=== PATIENT | female | born 1975 | race Two or more races ===

== ENCOUNTER → 2024-07-12 07:24 | Outpatient (REF) | payer BC, SELFPAY | LOC: WDC 07:24 | PROVIDERS: ATTENDING PHYSICIAN Obstetrics & Gynecology Gynecology | DX: Z12.31 Encounter for screening mammogram for malignant neoplasm of breast (principal); Z01.419 Encounter for gynecological examination (general) (routine) without abnormal findings | CPT/HCPCS: 77063; 77067 ==

== ENCOUNTER → 2024-07-25 09:38 | Outpatient (REF) | payer BC, SELFPAY | LOC: WDC 09:38 | PROVIDERS: ATTENDING PHYSICIAN Obstetrics & Gynecology Gynecology | DX: R92.8 Other abnormal and inconclusive findings on diagnostic imaging of breast (principal) | CPT/HCPCS: 76642 ==

== ENCOUNTER 2024-11-05 22:28 | Emergency (ER) | payer BC, SELFPAY ==
[2024-11-05 22:33] VITALS: BP 112/78
[2024-11-05 23:41] LABS: % Basophils 0.4 % (0-2); % Immature Granulocytes 0.2 % (0-0.5); % Lymphocytes 13.7 % (20.5-51.1); % Monocytes 12.7 % (1.7-9.3); Absolute Lymphocytes 0.7 10^3/uL (1.2-3.4); Absolute Monocytes 0.6 10^3/uL (0.1-0.6); Absolute Neutrophils 3.6 10^3/uL (1.4-6.5); Hematocrit 37.2 % (37.0-47.0); Mean Corp Hgb Conc. 32.3 g/dL (33.0-37.0); Mean Corpuscular Hgb 27.3 pg (27.0-31.0); Mean Corpuscular Volume 84.7 fL (81.0-99.0); Mean Platelet Volume 9.6 fL (7.4-10.4); Nucleated Red Blood Cells % 0 %; Platelet Count 238 10^3/uL (130-400); Red Blood Cell Count 4.39 10^6/uL (4.20-5.40); Red Cell Dist. Width 12.8 % (11.5-14.5)
[2024-11-06] LABS: COVID-19 Antigen Negative (Negative)
[2024-11-06 00:05] LABS: ALT (SGPT) 27 U/L (0-35); AST (SGOT) 50 U/L (14-36); Albumin 4.4 g/dl (3.5-5.0); Alkaline Phosphatase 49 U/L (38-126); Blood Urea Nitrogen 16 mg/dl (7-17); Calcium 9.7 mg/dl (8.4-10.2); Carbon Dioxide 27 mmol/L (22-30); Chloride 102 mmol/L (98-107); Glucose 120 mg/dl (70-99); Potassium 4.3 mmol/L (3.5-5.1); Sodium 135 mmol/L (135-145); Total Bilirubin 0.7 mg/dl (0.2-1.3); Total Protein 7.5 g/dl (6.3-8.2); eGFR > 60.00
[2024-11-06] MEDS: NSS 1000 IV (01:09)
[2024-11-06] MEDS: BENADRYL 25 MG IV (01:10)
[2024-11-06] MEDS: REGLAN 10 MG IV (01:11)
[2024-11-06] MEDS: MOTRIN 600 MG PO (01:12)
[2024-11-06 01:13] VITALS: BP 119/71
--- NOTE | 2024-11-06 01:43 | ED.GENMED ---
History of Present Illness
General
Chief Complaint: Headache
Source: patient
Exam Limitations: none
Time Seen by Provider: 11/06/24 00:27
History of Present Illness
History of Present Illness:
49-year-old female does present with a headache. She states headache is been persistent since Sunday. She does have a history of migraines but really has not had one in quite some time. Patient missed her whole family is sick. She has had
bodyaches and chills. Also minor cough and congestion. Patient states her headache is frontal. She is a little nauseous but she certainly has photophobia. Saw her doctor yesterday given migraine medicine which really did not help much. She
initially was using ibuprofen and Tylenol which seemed to help in the beginning but since then she has just been in bed. Patient does report her father had an aneurysm rupture.
Past History
Past History
ED Past Medical History: Other (Migraines)
Social History
Tobacco: Non-smoker
Phy Exam
Physical Exam
Physical Exam:
CONSTITUTIONAL Patient alert and oriented to person, place and time. Well-appearing. Vital signs reviewed.
HEAD atraumatic, normocephalic.
EYES eyelids normal to inspection, Extraocular muscles intact, Conjunctiva normal, Sclera normal.
NECK normal range of motion, Trachea midline, no jugular venous distention. No meningismus
RESPIRATORY CHEST No respiratory distress noted, Chest expansion equal
BACK normal inspection, no obvious deformities
UPPER EXTREMITY range of motion normal, Motor strength normal, no cyanosis, no edema.
LOWER EXTREMITY range of motion normal, Motor strength normal, no cyanosis, no edema.
NEURO Speech normal, No focal motor deficits, [place] coma scale 15, Memory normal, Cranial Nerves intact to screening exam. No pronator drift
SKIN skin warm, dry, and normal in color.
Course
Orders/Labs/Results
Orders:
Orders
11/05/24 23:31
COVID-19 Antigen Urgent
Source: Nasal Swab
Complete Blood Count/With Diff Urgent
Comprehensive Metabolic Panel Urgent
Influenza A+B Rapid Molecular Urgent
NOLVIA Source: Nasal Swab
Specimen Description:
11/06/24 00:56
CT Head W/o Iv Contrast Urgent
Comment:
Reason For Exam: Sanchez, fam hx of SAH
0.9% Sodium Chloride 1000 ml [Nss] 1,000 ml IV BOLUS
Diphenhydramine [Benadryl] 25 mg IV NOW STA
Ibuprofen [Motrin] 600 mg PO NOW STA
Metoclopramide [Reglan] 10 mg IV NOW STA
Abnormal Lab Results
11/05/24
23:31
MCHC 32.3 L g/dL
(33.0-37.0)
Absolute Lymphs (auto) 0.7 L 10^3/uL
(1.2-3.4)
Lymphocytes % 13.7 L %
(20.5-51.1)
Monocytes % 12.7 H %
(1.7-9.3)
Glucose 120 H mg/dl
(70-99)
AST 50 H U/L
(14-36)
11/05/24 23:31
11/05/24 23:31
Vital Signs
Initial and Last Documented VS:
Initial Vital Signs
Temp Pulse Resp BP Pulse Ox
99.6 F 84 16 112/78 100
11/05/24 22:33 11/05/24 22:33 11/05/24 22:33 11/05/24 22:33 11/05/24 22:33
Last Documented Vital Signs
Temp Pulse Resp BP Pulse Ox
100.2 F 86 22 119/71 99
11/06/24 00:49 11/06/24 01:13 11/06/24 01:13 11/06/24 01:13 11/06/24 01:13
MDM/Problems Addressed
Differential Diagnosis Includes:
Influenza, meningitis, migraine, tension headache, cluster headache, electrolyte imbalance, dehydration
MDM/Problems Addressed:
Migraine headache, influenza
*Radiology
Radiology exam reviewed: preliminary read by ED provider (No hemorrhage noted) and radiology read reviewed
*Pulse Oximetry
Patient hypoxic: no
*Critical Care Note
Total Time (30-74mins, 75-104mins- exclusive of procedures): Not Applicable
Data Reviewed
Source: patient
Prescriptions/Medications Considered But Not Given:
Consider antibiotics but influenza positive
Patient Management
Escalation/DeEscalation of care consider admission/obs:
Feeling much better. CT negative. Okay for outpatient follow-up. Likely influenza triggered migraine. Recommended outpatient follow-up. no role for tamiflu as pt is several days into her symptoms.
ED Attending Note
-
Portions of this chart may have been created with voice recognition software.� Occasional wrong word or��sound alike� substitutions may have occurred due to the inherent limitations of voice recognition software.
Discharge Plan
Departure
Patient Disposition: Home (Routine Discharge)
Date of Disposition: 11/06/24
Time of Disposition: 02:51
Patient with high blood pressure during this ER visit?: No
Discharge Problem:
Headache, Influenza
Instructions: Flu, Headache, Adult (DC)
Referrals:
UNKNOWN - PT DOES,NOT KNOW [Family Provider] -
Activity Restrictions/Additional Instructions:
Please use Tylenol and ibuprofen for fever control. Please drink plenty of fluids. Return immediately for change in mental status, intractable vomiting, worsening symptoms or any other concerns.
Interventions
Interventions:
*Risk Screen - Suicide Last Done: 11/05/24 22:33
*General Assessment Last Done: 11/06/24 01:14
*Neglect/Abuse Screening Last Done: 11/05/24 22:33
*ED COVID-19 Vaccine History Last Done: 11/06/24 01:14
ED- Neurological Assessment Last Done: 11/06/24 01:15
Discharge Date and Time
Print Language: POLISH
[2024-11-06] MEDS: TORADOL 30 MG IV (02:58)
== END 2024-11-06 03:41 | disposition home or self-care (01) ==
LOC: EMR 22:28
PROVIDERS: EMERGENCY PHYSICIAN Emergency Medicine
DX: G43.909 Migraine, unspecified, not intractable, without status migrainosus (principal); J10.1 Influenza due to other identified influenza virus with other respiratory manifestations
CPT/HCPCS: 96374; 96375; 96361; 99284; 70450; 80053; 85025; 87502; 87811

== ENCOUNTER 2024-11-07 10:57 | Emergency (ER) | payer BC, SELFPAY ==
[2024-11-07 11:05] VITALS: BP 98/63
--- NOTE | 2024-11-07 11:58 | ED.GENMED ---
History of Present Illness
General
Chief Complaint: Headache
Source: patient and spouse
Time Seen by Provider: 11/07/24 11:36
Nursing documentation reviewed up to this point in time: agreed with
Travel History
Have you traveled to any high risk areas for coronavirus over the past 14 days?: No
Do you have any symptoms of coronavirus? Fever > 100 degrees, chills, cough, shortness of breath, sore throat, loss of taste or smell, muscle aches, or headache?: No
History of Present Illness
History of Present Illness:
49-year-old female with remote PMH of migraines, who presented to the emergency department with right temporal headache that sometimes radiates to the suprasternal region. Headache started 4 days ago and has worsened. Patient was seen in the ED 2
days ago for similar symptoms. At that time, patient was evaluated with noncontrast CT scan of head which was negative for any acute intracranial process. Patient reports discharged on Tylenol and ibuprofen follow-up with PCP. She has been taking
50 mg sumatriptan up to 200 mg daily for 2 days, 1000 mg acetaminophen every 8 hours interchangeably with Motrin. However, patient reports that her symptoms acutely improving and they are worsened over the past 24 hours prompting her return to the
ED. She denies chest pain, fever, chills, abdominal pain, urinary symptoms.
Past History
Past History
ED Past Medical History: Other (Migraines)
Social History
Tobacco: Non-smoker
Alcohol: Occasional
Drug: None
Personal:
Living: with family
Review of Systems
Review of Systems
All Other Systems: ROS reviewed and negative except as documented in HPI and ROS
Phy Exam
Physical Exam
Physical Exam:
GENERAL: Alert and oriented x 3, NAD. Afebrile
HEAD: Tenderness on right temporal region
OROPHARYNX: no exudate or ulcers.
EYE: pupils equal and reactive extraocular muscles
NECK: Supple, no significant adenopathy.
CARDIAC: Regular rate and rhythm without any obvious murmurs.
LUNGS: Normal breath sounds,normal-no rhonchi. Not bronchospastic.
ABDOMEN: Soft, NT, ND, no peritoneal signs.
NEUROLOGICAL: Alert and oriented x 3. No focal neurological deficit.
SKIN: Warm and dry, no rash or lesion, no discoloration, skin intact.
MUSCULOSKELETAL: Full range of motion of extremities.
LYMPHATIC:No lymph nodes on his neck or supraclavicular area.
PSYCH: Normal and appropriate interaction.
Neurological Exam
Neurological Exam: alert, oriented x3, normal reflexs and speech normal
Musculoskeletal Exam
Musculoskeletal Exam: full ROM
Course
Orders/Labs/Results
Orders:
Orders
11/07/24 12:03
Sumatriptan Succinate [Imitrex] 6 mg SC NOW STA
11/07/24 12:07
Basic Metabolic Panel Urgent
CRP [C-Reactive Protein] Urgent
Complete Blood Count/With Diff Urgent
ESR [Erythrocyte Sed Rate] Urgent
11/07/24 12:34
0.9% Sodium Chloride 1000 ml [Nss] 1,000 ml IV BOLUS
Diphenhydramine [Benadryl] 25 mg IV NOW STA
Ketorolac [Toradol] 30 mg IV NOW STA
Metoclopramide [Reglan] 10 mg IV NOW STA
11/07/24 12:35
Dexamethasone Sod Phosphate [Decadron] 10 mg IV NOW STA
Abnormal Lab Results
11/07/24
12:07
RBC 4.13 L 10^6/uL
(4.20-5.40)
Hgb 11.4 L g/dL
(12.0-16.0)
Hct 35.2 L %
(37.0-47.0)
MCHC 32.4 L g/dL
(33.0-37.0)
Abs Immat Gran (auto) 0.1 H 10^3/uL
(0-0.05)
Absolute Neuts (auto) 9.0 H 10^3/uL
(1.4-6.5)
Absolute Lymphs (auto) 0.7 L 10^3/uL
(1.2-3.4)
Immature Gran % 0.7 H %
(0-0.5)
Neutrophils % 86.8 H %
(42.2-75.2)
Lymphocytes % 7.1 L %
(20.5-51.1)
ESR 25 H mm/hour
(0-20)
Creatinine 1.1 H mg/dL
(0.6-1.0)
Glucose 109 H mg/dl
(70-99)
C-Reactive Protein 63.40 H mg/L
(0.0-10.00)
11/07/24 12:07
11/07/24 12:07
Vital Signs
Initial and Last Documented VS:
Initial Vital Signs
Temp Pulse Resp BP Pulse Ox
99.6 F 99 16 98/63 96
11/07/24 11:05 11/07/24 11:05 11/07/24 11:05 11/07/24 11:05 11/07/24 11:05
Last Documented Vital Signs
Temp Pulse Resp BP Pulse Ox
99.6 F 77 16 114/76 99
11/07/24 11:05 11/07/24 14:00 11/07/24 14:00 11/07/24 14:00 11/07/24 14:00
MDM/Problems Addressed
MDM/Problems Addressed:
49-year-old female with past medical history of migraine who presented to the emergency department with right-sided headache that started 4 days ago. Suspects status migrainosus vs analgesic rebound headache given multiple analgesic in the past 72
hours. Patient likely did not respond to sumatriptan given inadequate dosing at 50 mg (after dose 100 mg with max 200 mg daily). Acute hemorrhagic stroke is highly unlikely given recent negative noncontrast head CT. CBC, BMP, CRP, ESR pending.
Will give ketorolac, Reglan, diphenhydramine and Decadron and monitor patient.
*Critical Care Note
Total Time (30-74mins, 75-104mins- exclusive of procedures): Not Applicable
Update Note
Update Note:
Patient reports feeling better. She remains hemodynamically stable and is medically stable for discharge. 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
likely as a candidate for further triptan therapy. Discussed with Dr. Silveira. Recommend treatment with rimegepant 75 mg daily as needed. Will also recommend following up with neurologist outpatient. Patient will most likely benefit from prophylaxis
therapy with amitriptyline vs propranolol given her soft blood pressure in the ED today.
ED Attending Note
-
Portions of this chart may have been created with voice recognition software.� Occasional wrong word or��sound alike� substitutions may have occurred due to the inherent limitations of voice recognition software.
Discharge Plan
Departure
Patient Disposition: Home (Routine Discharge)
Date of Disposition: 11/07/24
Time of Disposition: 15:12
Patient with high blood pressure during this ER visit?: No
Condition: Fair
Covid-19: Not Applicable
Discharge Problem:
Influenza A, Headache, migraine, with status migrainosus
Instructions: Migraines (DC), Headache, Adult (DC)
Prescriptions:
New
Nurtec ODT 75 mg tablet,disintegrating
75 mg PO ONCE PRN (Reason: migraine headache) Qty: 15 0RF
Referrals:
[facility] [Outside] - Follow up in 5-7 days
Piter Silveira MD [Active] - Follow up in 1 week
NONE,* [Family Provider] -
Activity Restrictions/Additional Instructions:
It was a pleasure meeting you and taking part in your care. We hope for your continued healing and wellness.
You presented to the emergency department today with recurrent right-sided headache. Your recent CT scan was negative for any acute hemorrhage your labs today was significant for increased ESR and CRP indicating inflammation with normal white
count. You been evaluated and treated with IV fluid, Toradol, Reglan, IV steroid and feeling better. We have sent some migraine medications to preferred pharmacy and recommend that you follow-up with your PCP and with neurology outpatient. We
have also provided you with referrals in the discharge packet.
Please schedule a follow up appointment as directed. Call to schedule an appointment.
Please take your medications as prescribed and follow up with your primary care provider and/or other healthcare provider involved in your care for any further adjustments to your medication regimen as necessary.
Please return to the emergency department with ANY change in, persisting, or worsening of symptoms. If any of your symptoms do not improve, or persist, or become more severe within 6-12 hours, please return to the emergency department for further
care. You may also return to the emergency department if you develop a headache, neck pain/stiffness, fever greater than 100.4F, chest pain, shortness of breath, persistent nausea, vomiting, slurred speech, difficulty walking, numbness/tingling,
weakness, signs of infection or any other symptoms that are worrisome to you.
If you have any questions or concerns please do not hesitate to call the Hospital at .
Interventions
Interventions:
*Risk Screen - Suicide Last Done: 11/07/24 12:02
*General Assessment Last Done: 11/07/24 12:02
*Neglect/Abuse Screening Last Done: 11/07/24 12:02
ED- Fall Risk Assessment Last Done: 11/07/24 12:02
ED- Neurological Assessment Last Done: 11/07/24 12:02
Discharge Date and Time
Print Language: FRENCH
[2024-11-07 12:00] VITALS: BP 102/68
[2024-11-07 12:34] LABS: Hematocrit 35.2 % (37.0-47.0); Hemoglobin 11.4 g/dL (12.0-16.0); Mean Corp Hgb Conc. 32.4 g/dL (33.0-37.0); Mean Corpuscular Hgb 27.6 pg (27.0-31.0); Mean Corpuscular Volume 85.2 fL (81.0-99.0); Mean Platelet Volume 9.5 fL (7.4-10.4); Platelet Count 203 10^3/uL (130-400); Red Blood Cell Count 4.13 10^6/uL (4.20-5.40); Red Cell Dist. Width 12.8 % (11.5-14.5); White Blood Cell Count 10.3 10^3/uL (4.8-10.8)
[2024-11-07 12:37] LABS: Erythrocyte Sed Rate 25 mm/hour (0-20)
[2024-11-07] MEDS: BENADRYL 25 MG IV (12:41)
[2024-11-07] MEDS: REGLAN 10 MG IV (12:41)
[2024-11-07 12:42] LABS: Blood Urea Nitrogen 10 mg/dl (7-17); Calcium 8.5 mg/dl (8.4-10.2); Carbon Dioxide 25 mmol/L (22-30); Chloride 104 mmol/L (98-107); Glucose 109 mg/dl (70-99); Potassium 3.5 mmol/L (3.5-5.1); Sodium 137 mmol/L (135-145); eGFR > 60.00
[2024-11-07] MEDS: TORADOL 30 MG IV (12:42)
[2024-11-07] MEDS: NSS 1000 IV (12:42)
[2024-11-07] MEDS: DECADRON 10 MG IV (12:42)
[2024-11-07 13:19] LABS: % Basophils 0.2 % (0-2); % Immature Granulocytes 0.7 % (0-0.5); % Lymphocytes 7.1 % (20.5-51.1); % Monocytes 5.2 % (1.7-9.3); % Neutrophils 86.8 % (42.2-75.2); Absolute Immature Granulocytes 0.1 10^3/uL (0-0.05); Absolute Lymphocytes 0.7 10^3/uL (1.2-3.4); Absolute Monocytes 0.5 10^3/uL (0.1-0.6); Nucleated Red Blood Cells % 0 %
[2024-11-07 13:39] VITALS: BP 106/64
[2024-11-07 14:00] VITALS: BP 114/76
== END 2024-11-07 16:00 | disposition home or self-care (01) ==
LOC: EMR 10:57
PROVIDERS: Student in an Organized Health Care Education/Training Program; EMERGENCY PHYSICIAN Emergency Medicine
DX: J10.1 Influenza due to other identified influenza virus with other respiratory manifestations (principal); G43.901 Migraine, unspecified, not intractable, with status migrainosus
CPT/HCPCS: 99284; 96374; 96375 ×3; 96361; 96372; 80048; 85025; 85652; 86140

== ENCOUNTER 2024-11-09 12:18 | Inpatient (IN) | payer BC, SELFPAY ==
[2024-11-09] VITALS (13 sets, daily range): BP systolic 86–135; BP diastolic 58–78; BMI 25.0
--- NOTE | 2024-11-09 09:11 | ED.GENMED ---
History of Present Illness
General
Chief Complaint: Headache
Source: patient and spouse
Exam Limitations: none
Time Seen by Provider: 11/09/24 09:04
Nursing documentation reviewed up to this point in time: agreed with
History of Present Illness
History of Present Illness:
49 yo female dx w Flu on 11/04, here on 11/06 for H/A and head CT neg, hx migraines. Here again on 11/07 for H/A, Neurology recommended Amitriptyline and out pt f/u. Pt states her headache is gone. She is here today for worse cough and R ear pressure
worsening any time she coughs. Denies n/v/d. Poor appetite.
Past History
Past History
ED Past Medical History: Other (Migraines)
ED Past Surgical History:
Social History
Tobacco: Non-smoker
Alcohol: Occasional
Drug: None
Personal:
Living: with family
Review of Systems
Review of Systems
Allergies reviewed?: Yes
All Other Systems: ROS reviewed and negative except as documented in HPI and ROS
Constitutional: Reports fatigue and chills
EENT: Reports other (R ear pressure); Denies sore throat
Respiratory: Reports cough; Denies trouble breathing
Cardiac: Denies chest pain
ABD/GI: Reports anorexia; Denies abdominal pain, nausea, vomiting, diarrhea or constipated
: Denies dysuria or difficulty voiding
Musculoskeletal: Reports no symptoms
Skin: Reports no symptoms
Neurological: Reports no symptoms
Phy Exam
Physical Exam
Physical Exam:
GENERAL: No acute distress. A&Ox3.
CONSTITUTIONAL: Afebrile.
EYES: clear, conjunctivae normal
ENMT: moist mucus membranes, Pharynx nl. Left TM normal, R TM mildly erythematous
RESPIRATORY: Regular respirations, nonlabored, lungs clear.
CARDIOVASCULAR: Regular rate and rhythm, no murmurs, no rubs.
GI: Soft, nontender, normal BS
MUSCULOSKELETAL: Moves with ease. Well perfused.
SKIN: Warm, dry, pink
PSYCH: Depressed, anxious mood and affect. Well kept.
NEUROLOGIC: Awake, alert and oriented. No focal neurological deficits
Course
Orders/Labs/Results
Orders:
Orders
11/09/24 09:10
CR Chest - 2 Views Urgent
Comment:
Reason For Exam: SOB, cough, recent Flu dx
11/09/24 10:01
0.9% Sodium Chloride 1000 ml [Nss] 1,000 ml IV BOLUS
CefTRIAXone [Rocephin] 1,000 mg IV NOW STA
11/09/24 10:02
Doxycycline [Vibramycin] 100 mg PO NOW STA
11/09/24 10:06
O2 Therapy [RESP] Urgent
Nasal Cannula Liter Flow: 2 LPM
Titrate/Wean O2 to maintain O2 sat greater than (%): 95
11/09/24 10:22
Acetaminophen [Tylenol] 1,000 mg PO NOW STA
11/09/24 10:31
Complete Blood Count/With Diff Urgent
Comprehensive Metabolic Panel Urgent
Lactic Acid Q4H
Comment: CANCEL 2nd LACTIC ACID IF 1st LACTIC ACID IS LESS THAN 2
Blood Culture Q30M
NOLVIA Source: Blood/Venous
Specimen Description:
11/09/24 10:32
Blood Culture Q30M
NOLVIA Source: Blood/Venous
Specimen Description:
11/09/24 11:21
Admit/Transfer Patient As Directed
Co-Sign Provider:
Level of Care: Inpatient admission
Assign to:: Medical/Surgical
Physician / Group: Jhoan Evans
Diagnosis: Flu A infection, superimposed bacterial PNA
Reason for Hospitalization: Flu A infection, superimposed bacterial PNA
Expected length of stay greater than two midnights?: Yes
ELOS- Estimated Length of Stay in days: 3
I certify the patient meets the requirements for IP care: Yes
PRN Pain Medication Management As Directed
May give lesser potent ordered pain med per pt: Yes
preference::
Protocol:: Medication orders for pain may be administered in a
manner that supports deferring to patient preference
when the pt is:
- Requesting an ordered lesser potent pain medication.
Least to most potent pain medications are defined
as: acetaminophen < NSAID < tramadol < opioids
(morphine, oxycodone, hydromorphone).
- Requesting a lesser dose of the same medication IF
ORDERED.
- Requesting a less intrusive route of administration
if both routes are prescribed by the provider (PO <
IV).
11/09/24 11:22
Code Status As Directed
Resuscitation Status: Full Code
Abnormal Lab Results
11/09/24
10:31
RBC 3.89 L 10^6/uL
(4.20-5.40)
Hgb 10.5 L g/dL
(12.0-16.0)
Hct 32.7 L %
(37.0-47.0)
MCHC 32.1 L g/dL
(33.0-37.0)
Absolute Neuts (auto) 7.2 H 10^3/uL
(1.4-6.5)
Absolute Lymphs (auto) 0.9 L 10^3/uL
(1.2-3.4)
Neutrophils % 84.2 H %
(42.2-75.2)
Lymphocytes % 10.7 L %
(20.5-51.1)
Glucose 113 H mg/dl
(70-99)
11/09/24 10:31
11/09/24 10:31
Vital Signs
Initial and Last Documented VS:
Initial Vital Signs
Temp Pulse Resp BP Pulse Ox
98.9 F 100 20 135/77 93
11/09/24 08:29 11/09/24 08:29 11/09/24 08:29 11/09/24 08:29 11/09/24 08:29
Last Documented Vital Signs
Temp Pulse Resp BP Pulse Ox
101.4 F H 89 18 114/74 99
11/09/24 15:25 11/09/24 16:00 11/09/24 16:00 11/09/24 16:00 11/09/24 16:00
MDM/Problems Addressed
Differential Diagnosis Includes:
PNA
MDM/Problems Addressed:
49 yo female dx w Flu on 11/04, here on 11/06 for H/A and head CT neg, hx migraines. Here again on 11/07 for H/A, Neurology recommended Amitriptyline and out pt f/u. Pt states her headache is gone. She is here today for worse cough and R ear pressure
worsening any time she coughs. Denies n/v/d. Poor appetite.
Afebrile
intermittent cough, reddened R TM
10:00 a.m.
Pt CXR: moderate right middle lung field PNA
Pulse ox 90% RA, 3rd visit in one week, plan: admit, IVFs, PNA, R otitis media
Hospitalist notified of admission
*Critical Care Note
Total Time (30-74mins, 75-104mins- exclusive of procedures): Not Applicable
ED Attending Note
-
Portions of this chart may have been created with voice recognition software.� Occasional wrong word or��sound alike� substitutions may have occurred due to the inherent limitations of voice recognition software.
Discharge Plan
Departure
Patient Disposition: Admit
Date of Disposition: 11/09/24
Time of Disposition: 10:06
Admit to: Med/Surg
Presentation/result/management discussed w/ accepting MD/DO: Hospitalist
Condition: Fair
Discharge Problem:
Acute otitis media, right, RML pneumonia
Interventions
Interventions:
*General Assessment Last Done: 11/09/24 09:14
*Neglect/Abuse Screening Last Done: 11/09/24 09:14
ED- Fall Risk Assessment Last Done: 11/09/24 09:15
*ED COVID-19 Vaccine History Last Done: 11/09/24 09:14
ED- Neurological Assessment Last Done: 11/09/24 10:00
ED- Pulmonary Assessment Last Done: 11/09/24 10:00
[2024-11-09] MEDS: NSS 1000 IV ×2 (10:32→20:12)
[2024-11-09] MEDS: VIBRAMYCIN 100 MG PO ×2 (10:39→20:11)
[2024-11-09] MEDS: ROCEPHIN 1000 MG IV (10:39)
[2024-11-09] MEDS: TYLENOL 1000 MG PO (10:58)
[2024-11-09 11:14] LABS: Lactic Acid 1.4 mmol/L (0.7-2.0)
[2024-11-09 11:15] LABS: Hematocrit 32.7 % (37.0-47.0); Hemoglobin 10.5 g/dL (12.0-16.0); Mean Corp Hgb Conc. 32.1 g/dL (33.0-37.0); Mean Corpuscular Volume 84.1 fL (81.0-99.0); Mean Platelet Volume 9.8 fL (7.4-10.4); Platelet Count 232 10^3/uL (130-400); Red Blood Cell Count 3.89 10^6/uL (4.20-5.40); Red Cell Dist. Width 12.7 % (11.5-14.5); White Blood Cell Count 8.6 10^3/uL (4.8-10.8)
[2024-11-09 11:16] LABS: ALT (SGPT) 24 U/L (0-35); AST (SGOT) 31 U/L (14-36); Albumin 3.5 g/dl (3.5-5.0); Alkaline Phosphatase 60 U/L (38-126); Blood Urea Nitrogen 15 mg/dl (7-17); Calcium 8.5 mg/dl (8.4-10.2); Carbon Dioxide 26 mmol/L (22-30); Chloride 103 mmol/L (98-107); Glucose 113 mg/dl (70-99); Potassium 4.3 mmol/L (3.5-5.1); Sodium 136 mmol/L (135-145); Total Bilirubin 0.6 mg/dl (0.2-1.3); Total Protein 6.4 g/dl (6.3-8.2); eGFR > 60.00
--- NOTE | 2024-11-09 11:24 | HPS.HSE ---
Family Physician
-
Family Physician: * NONE
Chief Complaint
-
Worsening cough/shortness of breath fever
History of Present Illness
Patient is a 49-year-old female with no major past medical history except possible asthma started to having new onset of upper respiratory tract symptoms of cough/congestion from Sunday. Patient was having on and off fever and came to ER and found
to have flu a positive. Patient was having associated headache and was provided symptomatic care. Patient was discharged home and due to nonimprovement of headache came back to ER again. Patient was provided cocktail of medication and neurology
recommended patient to be given amitriptyline with which patient headache resolved. Unfortunately patient started having worsening cough with phlegm production and new shortness of breath. Patient feeling excessively fatigued/lethargic and came
to ER for further evaluation.
During my ER visit patient able to provide history has decreased voice and overall seems quite debilitated from ongoing illness. Denies of having associated chest pain/dizziness/palpitations/abdominal pain/nausea/vomiting/diarrhea/dysuria.
Medical History
Past Medical History
Past Medical History: Reports Asthma
Past Surgical History: Reports None and Other
Social History
Tobacco: Non-smoker
Alcohol: Occasional
Personal:
Living: With Family
Family History
Family History: Not pertinent
Allergies / Home Medications
Allergies reflects when Allergies were last updated in [facility].
Home Medications with original date entered in [facility]
Allergy/Medication List:
Allergies
Allergy/AdvReac Type Severity Reaction Status Date / Time
No Known Allergies Allergy Verified 11/09/24 08:32
Home Medications
rimegepant 75 mg disintegrating tablet (Nurtec ODT) 75 mg PO ONCE PRN migraine headache #15 tabs 11/07/24
amitriptyline 10 mg tablet 10 mg PO DAILY 11/09/24
Review of Systems
-
A 12 point ROS was completed and negative except as noted: Yes
Physical Exam
Vital Signs
Vital Signs
Temp Pulse Resp BP Pulse Ox
103.1 F H 108 13 124/70 91
11/09/24 10:56 11/09/24 10:22 11/09/24 10:22 11/09/24 10:22 11/09/24 10:22
Physical Exam
General: No Apparent Distress
HEENT: Moist mucous membranes, Atraumatic and Oxygen (2L NC)
Respiratory: Wheezes and Rhonchi
Cardiac: S1/S2, Regular Rhythm and Tachycardia; No Murmur or Rub
GI: Soft, Non Distended and Normal Bowel Sounds; No Organomegaly
Musculoskeletal: No Clubbing, No Cyanosis and No Edema
Skin: No Rash
Neuro: Awake, Alert, Oriented and Nonfocal/grossly intact
Laboratory Results
-
11/09/24 10:31
11/09/24 10:31
Laboratory Results
Lactic Acid 1.4 mmol/L (0.7-2.0) 11/09/24 10:31
Total Bilirubin 0.6 mg/dl (0.2-1.3) 11/09/24 10:31
AST 31 U/L (14-36) 11/09/24 10:31
ALT 24 U/L (0-35) 11/09/24 10:31
Alkaline Phosphatase 60 U/L (38-126) 11/09/24 10:31
Data Reviewed
-
Diagnostic Radiology: Image Personally Visualized and interpreted, Discussed with Patient and Discussed with Family
Lab Data: Labs Reviewed by me, Discussed with Patient and Discussed with Family
Impression/Plan
-
1. Sepsis -POA
Right lower lobe pneumonia
-Patient recovering from flu infection, flu symptoms started last Sunday and out of window for Tamiflu
-Febrile/tachycardic/hypoxic in ER
-Chest x-ray showing new right lower lobe infiltrates
-Patient got Rocephin/doxycycline, continue
2. Acute hypoxic respite insufficiency
-Secondary to flu/pneumonia, wean off as possible
-History of asthma although no signs of flareup on exam
3. Recovering Flu A infection
-Initial symptom onset on 11/03
-Out of Tamiflu treatment window
4. H/o Asthma
-No history of flareup
-Have not required to follow-up with pulmonology recently
-As needed nebulizer therapy ordered
5. Migraine Episode
-Likely related with flu
-Continue amitriptyline which has helped patient
6. Chronic normocytic anemia
-monitor
7. Right ear pain
-Otoscopic examination showing some erythema on tympanic membrane
-likely viral otitis media
DVT PPX- lovenox
Full code
Total time spent : 79 mins
I personally saw and examined the patient.
I have reviewed all diagnostic interpretations and treatment plans as written.
Time includes patient management by me, time spent at the patients bedside, time to review lab and imaging results, discussing patient care, documentation in the medical record, and time spent with the family or caregiver and discussing care plan
with RN/Consultants.
[2024-11-09 11:47] LABS: % Basophils 0.1 % (0-2); % Immature Granulocytes 0.4 % (0-0.5); % Lymphocytes 10.7 % (20.5-51.1); % Monocytes 4.6 % (1.7-9.3); % Neutrophils 84.2 % (42.2-75.2); Absolute Lymphocytes 0.9 10^3/uL (1.2-3.4); Absolute Monocytes 0.4 10^3/uL (0.1-0.6); Absolute Neutrophils 7.2 10^3/uL (1.4-6.5); Nucleated Red Blood Cells % 0 %
--- NOTE | 2024-11-09 19:00 | PTCARENOTE ---
Pt arrived from ED via stretcher, oob to room with steady gait. Pt c/o headache, and nausea. Pt states 'it feels like my migraine is coming back. I have no been able to hold any pills down. I threw them up.' Oriented to room. vss. medicated as
ordered. call gonzalez within reach.
[2024-11-09] MEDS: LOVENOX 40 MG SC (20:14)
[2024-11-09] MEDS: TYLENOL 650 MG PO (20:14)
[2024-11-10 07:24] LABS: Hematocrit 28.4 % (37.0-47.0); Hemoglobin 9.2 g/dL (12.0-16.0); Mean Corp Hgb Conc. 32.4 g/dL (33.0-37.0); Mean Corpuscular Hgb 27.3 pg (27.0-31.0); Mean Corpuscular Volume 84.3 fL (81.0-99.0); Mean Platelet Volume 9.9 fL (7.4-10.4); Platelet Count 219 10^3/uL (130-400); Red Blood Cell Count 3.37 10^6/uL (4.20-5.40); Red Cell Dist. Width 12.8 % (11.5-14.5); White Blood Cell Count 8.8 10^3/uL (4.8-10.8)
[2024-11-10 07:47] LABS: Blood Urea Nitrogen 12 mg/dl (7-17); Calcium 7.8 mg/dl (8.4-10.2); Carbon Dioxide 25 mmol/L (22-30); Chloride 105 mmol/L (98-107); Estimated Creatinine Clearance 72 ml/min; Glucose 95 mg/dl (70-99); Sodium 135 mmol/L (135-145); eGFR > 60.00
[2024-11-10 08:08] VITALS: BP 117/68
[2024-11-10] MEDS: VIBRAMYCIN 100 MG PO ×2 (09:44→20:40)
[2024-11-10] MEDS: ELAVIL 10 MG PO (09:45)
[2024-11-10] MEDS: ROCEPHIN 1000 MG IV (09:46)
[2024-11-10] MEDS: STERILE WATER FOR INJECTION 10 ML IV (09:46)
[2024-11-10] MEDS: TYLENOL 650 MG PO ×2 (09:55→20:44)
--- NOTE | 2024-11-10 14:42 | W.PN.HOSP.TC ---
Today's Communication/Plan
-
Assessment / Plan
Assessment / Plan
NAD
Scleral Anicteric
MMM
No JVD
Rhonchorous
RRR, S1/S2
Soft, NT, ND, BS+
Warm, Dry
Calm
Sepsis likely secondary to right lower lobe pneumonia
Right lower lobe pneumonia
2/5 diagnosed with flu however was outside of window for Tamiflu
Now presented back with findings right lower lobe pneumonia started on Rocephin doxycycline which have been continued
Acute hypoxemic respiratory failure secondary to pneumonia/flu wean O2 as tolerated
Continue incentive spirometer Acapella use if not ordered will order
Recovering flu out of Tamiflu treatment window
Asthma as needed nebulizer
Migraine
Continue amitriptyline Tylenol
Right ear pain
I do not have a autoscope therefore was unable to evaluate this per previous documentation concern for viral otitis media
Anticipated Discharge: 24 - 48 hours
Subjective/Interval History
-
Date of Service: November 10, 2024
Seen and examined. No new complaints. No acute overnight events.
Objective Data
-
Labs:
Laboratory Results
11/10/24
07:02
WBC 8.8
Hgb 9.2 L
Hct 28.4 L
Plt Count 219
Sodium 135
Potassium 4.0
Chloride 105
Carbon Dioxide 25
BUN 12
Creatinine 0.8
Glucose 95
Calcium 7.8 L
Vital Signs:
Vital Signs
Temp Pulse Resp BP Pulse Ox
99 F 71 16 117/68 98
11/10/24 08:08 11/10/24 08:08 11/10/24 08:08 11/10/24 08:08 11/10/24 08:08
I&O
11/09/24 11/10/24 11/11/24
06:59 06:59 06:59
Intake Total 1859
Balance 1859
--- NOTE | 2024-11-10 14:54 | CM ---
CM reviewed chart, placed call to patients to complete initial assessment. Patient resides with spouse and children in a multiple story home, three steps to enter. Patient denies use of DME, VN, or SNF history. PCP through [facility],
pharmacy [facility]. Patient will discharge home likely no needs.
Plan; home no needs likely, watch for O2 needs.
[2024-11-10 15:00] VITALS: BP 104/68
[2024-11-10] MEDS: LOVENOX 40 MG SC (17:13)
[2024-11-10 23:30] VITALS: BP 116/70
[2024-11-11 07:00] VITALS: BP 121/69
[2024-11-11] MEDS: VIBRAMYCIN 100 MG PO (08:04)
[2024-11-11] MEDS: STERILE WATER FOR INJECTION 10 ML IV (08:04)
[2024-11-11] MEDS: ELAVIL 10 MG PO (08:04)
[2024-11-11] MEDS: ROCEPHIN 1000 MG IV (08:05)
[2024-11-11] MEDS: TYLENOL 650 MG PO (08:15)
[2024-11-11 08:51] LABS: Hematocrit 29.7 % (37.0-47.0); Hemoglobin 9.8 g/dL (12.0-16.0); Mean Corpuscular Hgb 27.8 pg (27.0-31.0); Mean Corpuscular Volume 84.4 fL (81.0-99.0); Mean Platelet Volume 10.2 fL (7.4-10.4); Platelet Count 257 10^3/uL (130-400); Red Blood Cell Count 3.52 10^6/uL (4.20-5.40); Red Cell Dist. Width 12.5 % (11.5-14.5); White Blood Cell Count 8.5 10^3/uL (4.8-10.8)
[2024-11-11 09:30] LABS: Blood Urea Nitrogen 9 mg/dl (7-17); Calcium 8.3 mg/dl (8.4-10.2); Carbon Dioxide 26 mmol/L (22-30); Chloride 104 mmol/L (98-107); Estimated Creatinine Clearance 72 ml/min; Glucose 94 mg/dl (70-99); Sodium 136 mmol/L (135-145); eGFR > 60.00
--- NOTE | 2024-11-11 12:00 | W.PN.HOSP.TC ---
Today's Communication/Plan
-
Transition from IV antibiotics with Rocephin doxycycline to cefdinir and doxycycline to complete 10-day course.
Outpatient pulmonary follow-up for PFTs and asthma evaluation
Ambulated 220 feet with respiratory therapy maintain oxygen saturations of greater than 98%
Discharge home
More than 30 minutes spent in discharge including
Final examination of the patient
Summarizing hospital stay
Instructions for continuing care to all relevant caregivers
Preparation of discharge records, prescriptions, and referral forms
Total time spent (in minutes): 33min
Assessment / Plan
Assessment / Plan
NAD
Scleral Anicteric
MMM
No JVD
Rhonchorous
RRR, S1/S2
Soft, NT, ND, BS+
Warm, Dry
Calm
Sepsis likely secondary to right lower lobe pneumonia
Right lower lobe pneumonia
2/5 diagnosed with flu however was outside of window for Tamiflu
Now presented back with findings right lower lobe pneumonia started on Rocephin doxycycline which have been continued
Acute hypoxemic respiratory failure secondary to pneumonia/flu wean O2 as tolerated
Continue incentive spirometer Acapella use if not ordered will order
Recovering flu out of Tamiflu treatment window
Asthma as needed nebulizer
Migraine
Continue amitriptyline Tylenol
Right ear pain
I do not have a autoscope therefore was unable to evaluate this per previous documentation concern for viral otitis media
Anticipated Discharge: Today
Subjective/Interval History
-
Date of Service: November 11, 2024
Seen and examined. States that she is feeling significantly better. No new complaints. No acute overnight events.
Objective Data
-
Labs:
Laboratory Results
11/11/24
07:21
WBC 8.5
Hgb 9.8 L
Hct 29.7 L
Plt Count 257
Sodium 136
Potassium 4.0
Chloride 104
Carbon Dioxide 26
BUN 9
Creatinine 0.8
Glucose 94
Calcium 8.3 L
Vital Signs:
Vital Signs
Temp Pulse Resp BP Pulse Ox
99.4 F 60 16 121/69 100
11/11/24 07:00 11/11/24 07:00 11/11/24 07:00 11/11/24 07:00 11/11/24 07:00
I&O
11/10/24 11/11/24 11/12/24
06:59 06:59 06:59
Intake Total 1859
Balance 1859
--- NOTE | 2024-11-11 12:02 | CM ---
Chart reviewed and patient is for discharge to home today, no needs.
Plan; Home no needs.
--- NOTE | 2024-11-11 12:02 | W.DCSUMMARY ---
Discharge Summary
Discharge Data
Date of Admission: 11/09/24
Date of Discharge: 11/11/24
-
Pending Results: No
Hospital Course
49-year-old female with no major past medical history
Presenting with upper respiratory tract symptoms of cough/congestion after being recently diagnosed with the flu on November 06 in the ER for intermittent fevers. However returned on the with these new symptoms. This was likely secondary to a
superimposed bacterial pneumonia that caused respiratory distress requiring oxygen. Was able to wean off oxygen as tolerated with improvement in symptomatology after initiating IV antibiotics. Blood cultures were negative x 48 hours. Will
continue providing incentive spirometer and Acapella as an outpatient. On the day of discharge she was evaluated by respiratory therapy was able to ambulate 220 feet on room air and maintain a pulse oximeter of 98% and higher.
Discharge Plan
-
Patient Disposition: Home (Routine Discharge)
Discharge Diagnosis/Procedures: Pneumonia
Condition: Good
Diet: As tolerated
Activity: As tolerated
Activity Restrictions/Additional Instructions:
Presenting with upper respiratory tract symptoms of cough/congestion after being recently diagnosed with the flu on November 06 in the ER for intermittent fevers. However returned on the with these new symptoms. This was likely secondary to a
superimposed bacterial pneumonia that caused respiratory distress requiring oxygen. Was able to wean off oxygen as tolerated with improvement in symptomatology after initiating IV antibiotics. Blood cultures were negative x 48 hours. Will
continue providing incentive spirometer and Acapella as an outpatient. On the day of discharge she was evaluated by respiratory therapy was able to ambulate 220 feet on room air and maintain a pulse oximeter of 98% and higher.
Referrals:
Leigha Hernandez, DO [Active] - in two weeks
NONE,* [Family Provider] -
Prescriptions:
New
acetaminophen 325 mg Tablet
650 mg PO Q4HPRN PRN (Reason: if temp > 101 F) Qty: 20 0RF
ipratropium-albuterol 0.5 mg-3 mg(2.5 mg base)/3 mL Solution For Nebulization
3 ml inhalation R Q4HPRN PRN (Reason: shortness of breath) Qty: 90 0RF
doxycycline hyclate 100 mg Capsule
100 mg PO BID Qty: 16 0RF
cefdinir 300 mg capsule
300 mg PO BID Qty: 16 0RF
(DME) nebulizer accessories Kit
See Rx Instructions .Route Qty: 1 0RF
Rx Instructions:
As directed
albuterol sulfate [Ventolin HFA] 90 mcg/actuation HFA aerosol inhaler
2 puff inhalation Q6H PRN (Reason: shortness of breath or wheezing) Qty: 6.7 0RF
Continued
Nurtec ODT 75 mg tablet,disintegrating
75 mg PO ONCE PRN (Reason: migraine headache) Qty: 15 0RF
amitriptyline 10 mg Tablet
10 mg PO DAILY
Discharge Orders:
Discharge Patient (As Directed); Ordered 11/11/24
Ordered By: Naman Evans
Discharge Date and Time
Print Language: ETHIOPIAN
[2024-11-11 15:15] VITALS: BP 118/72
== END 2024-11-11 15:47 | disposition home or self-care (01) | DRG 871 ==
LOC: 4 WEST ACU 12:18
PROVIDERS: Registered Nurse; ADMITTING PHYSICIAN Hospitalist; ATTENDING PHYSICIAN Hospitalist; EMERGENCY PHYSICIAN Student in an Organized Health Care Education/Training Program
DX: A41.9 Sepsis, unspecified organism (principal); J15.9 Unspecified bacterial pneumonia; J96.01 Acute respiratory failure with hypoxia; J45.909 Unspecified asthma, uncomplicated; D64.9 Anemia, unspecified; H66.91 Otitis media, unspecified, right ear; G43.909 Migraine, unspecified, not intractable, without status migrainosus; Z79.899 Other long term (current) drug therapy
CPT/HCPCS: 71046; 80048; 80053; 83605; 85025; 85027; 87040; 96361; 96374; 99285

== ENCOUNTER → 2025-02-24 10:40 | Outpatient (REF) | payer BC, SELFPAY | LOC: RAD 10:40 | PROVIDERS: ATTENDING PHYSICIAN Internal Medicine Critical Care Medicine; FAMILY PHYSICIAN Family Medicine | DX: J18.9 Pneumonia, unspecified organism (principal) | CPT/HCPCS: 71046 ==

== ENCOUNTER → 2025-07-13 13:17 | Outpatient (REF) | payer BC, SELFPAY | LOC: WDC 13:17 | PROVIDERS: ATTENDING PHYSICIAN Obstetrics & Gynecology Gynecology | DX: Z12.31 Encounter for screening mammogram for malignant neoplasm of breast (principal) | CPT/HCPCS: 77063; 77067 ==